=== PATIENT | male | born 1950 | race Caucasian/White ===

== ENCOUNTER 2017-06-12 10:53 | Emergency (ER) | payer OTHER ==
[~2017-06-12] VITALS: Ht 177.8 cm; Wt 63.5 kg
[~2017-06-12 10:53] MED LIST: ALBIPROI INH; ALBU.083IS IH; ALBU90OI INH; AZIT250 PO; BENADRYL25 MG PO; CEFU500 PO; CEPH500 PO; CIPRO500 MG PO; CLAR500 PO; CLIN150 PO; CRUTCH3 USE; CYCL10 PO; DIAZ5 PO; Flagyl500 MG PO; HYDACE5 PO; HYDR1TAB94 PO; IPRAIS NEB; LEVO750 PO; LOPE2C PO; METO25; METO25ER PO; MUPI2TO TOP; NAPR375 PO; NAPR500 PO; Norco 10-325 T1 EACH PO; Norco 5-325 Ta1 EACH PO; ONDA4 PO; OXYACE5T PO; PRED20 PO; PROACE100; PROM25 PO; Percocet 10-321 EACH PO; Prednisone20 MG PO; RXCLIN PO; RXOXYACE PO; Robaxin-750750 MG PO; TAMS.4ER PO; TRAM50 PO; Triamcinolone A15 G4 TP; Valium5 MG PO; Zofran Odt4 MG SL
[2017-06-12] MEDS ORDERED: HYDR-86 (11:12)
== END 2017-06-12 12:03 | disposition home or self-care (01) ==
LOC: ER 10:53
DX: M54.5 Low back pain (principal); G89.29 Other chronic pain; Z88.5 Allergy status to narcotic agent; F17.200 Nicotine dependence, unspecified, uncomplicated; Z79.891 Long term (current) use of opiate analgesic
CPT/HCPCS: 72100; 96372; 99283; J1885

== ENCOUNTER → 2018-07-25 | Outpatient (CLI) | payer OTHER ==
[~2018-07-25] MED LIST changes: +HYDR-86
== END | disposition home or self-care (01) ==
LOC: LAB SHORT 14:55 → LAB SRC 14:55
DX: M48.062 Spinal stenosis, lumbar region with neurogenic claudication (principal); Z79.899 Other long term (current) drug therapy

== ENCOUNTER 2018-12-03 10:09 | Day surgery (SDC) | payer OTHER ==
[~2018-12-03] VITALS: Ht 180.3 cm; Wt 66.6 kg
[~2018-12-03 10:09] MED LIST changes: +Hydrocodone-Ap1 EA20 PO; +PROAIR RESPICL90 MCG INH
--- NOTE | 2018-12-03 11:52 | NUR ---
12/03/18 1152 Dora Kang PT WITH BOTH INSPIRATORY AND EXPIRATORY WHEEZING. UPDRAFTED PER DR. BAUTISTA. DR. BAUTISTA MADE AWARE OF PT'S HYPERTENSION. NOTIFIED PT WE MAY NEED TO DO SCOPE WITHOUT SEDATION DUE TO RESPIRATORY STATUS. PT AGREES.
== END 2018-12-03 12:45 | disposition home or self-care (01) ==
LOC: ORSCSDS 10:09
PROVIDERS: Internal Medicine Gastroenterology
PROC: 0DJD8ZZ Inspection of Lower Intestinal Tract, Via Natural or Artificial Opening Endoscopic (ICD-10-PCS; principal; 2018-12-03 11:45)
DX: R10.9 Unspecified abdominal pain (principal); Z86.010 Personal history of colon polyps; K57.30 Diverticulosis of large intestine without perforation or abscess without bleeding; K64.8 Other hemorrhoids; K64.4 Residual hemorrhoidal skin tags; F17.210 Nicotine dependence, cigarettes, uncomplicated; J44.9 Chronic obstructive pulmonary disease, unspecified; I10 Essential (primary) hypertension; Z79.899 Other long term (current) drug therapy; Z80.0 Family history of malignant neoplasm of digestive organs
CPT/HCPCS: J2704; J7120

== ENCOUNTER 2019-03-03 13:44 | Inpatient (IN) | payer OTHER ==
[~2019-03-03] VITALS: Ht 180.3 cm; Wt 68.5 kg
[2019-03-03 14:41] LABS: BASOPHILS ABSOLUTE AUTO 0.06 K/mm3 (0.00-0.23); BASOPHILS PERCENT AUTO 0 % (0-2); EOSINOPHILS ABSOLUTE AUTO 0.05 K/mm3 (0.00-0.68); EOSINOPHILS PERCENT AUTO 0 % (0-6); Hematocrit 41.5 % (37.0-53.0); IMMATURE GRAN ABSOLUTE AUTO 0.08 K/mm3 (0.00-0.10); IMMATURE GRAN PERCENT AUTO 1 % (0-1); LYMPHOCYTES ABSOLUTE AUTO 3.07 K/mm3 (0.84-5.20); LYMPHOCYTES PERCENT AUTO 18 % (21-46); MONOCYTES ABSOLUTE AUTO 1.32 K/mm3 (0.16-1.47); MONOCYTES PERCENT AUTO 8 % (4-13); Mean Corpuscular HGB 31.5 pg (26.0-34.0); Mean Corpuscular HGB Conc 33.7 g/dL (31.5-36.5); Mean Corpuscular Volume 94 fL (80-100); Mean Platelet Volume 9.2 fL (9.1-12.4); NEUTROPHILS ABSOLUTE AUTO 12.67 K/mm3 (1.96-9.15); NEUTROPHILS PERCENT AUTO 73 % (41-73); Platelet Count 490 K/mm3 (150-400); RDW Coefficient Variation 12.8 % (11.7-14.2); RDW Standard Deviation 43.9 fL (35.1-46.3); Red Blood Cell Count 4.44 M/mm3 (4.30-5.90); White Blood Cell Count 17.25 K/mm3 (4.00-11.30)
[2019-03-03 15:04] LABS: Troponin I <0.015 ng/mL (0.000-0.040)
[2019-03-03 15:05] LABS: Alanine Aminotransfer (ALT/SGP 22 U/L (12-78); Albumin, Blood 3.5 g/dL (3.4-5.0); Alk Phos 88 U/L (50-136); Anion Gap 8 mmol/L (6-16); Aspartate Aminotrans (AST/SGOT 19 U/L (12-37); Bilirubin, Total 0.8 mg/dL (0.1-1.0); Blood Urea Nitrogen 14 mg/dL (8-24); Bun/Creatinine Ratio 18.4 (12.0-20.0); CO2, Blood 25 mmol/L (21-32); Calcium, Blood 9.1 mg/dL (8.5-10.1); Chloride, Blood 106 mmol/L (98-108); Creatinine, Blood 0.76 mg/dL (0.60-1.20); Globulin, Blood 3.4 g/dL (2.2-4.0); Glomerular Filtration Rate >60 (60-); Glucose, Blood 88 mg/dL (70-99); Potassium, Blood 3.8 mmol/L (3.5-5.5); Sodium, Blood 139 mmol/L (136-145); Total Protein, Blood 6.9 g/dL (6.4-8.2)
[2019-03-03] MEDS ORDERED: Norco 10-325 T1 EACH PO (16:07)
--- NOTE | 2019-03-03 18:32 | NUR ---
PT NEW ADMIT FROM ED. ARRIVES TO PCU 8 ON CARDIZEM GTT AT 8ML/HR. NSR-SINUS TACH IN 90S-100S. NURSE AT ROOM PERFORMING ADMISSION HISTORY AT THIS TIME.
[2019-03-03 20:50] LABS: CPK Creatine Kinase 47 U/L (39-308); Magnesium, Blood 1.5 mg/dL (1.6-2.4); Troponin I <0.015 ng/mL (0.000-0.040)
[2019-03-03 20:54] LABS: Creatine Kinase MB <1.0 ng/mL (0.0-3.6); Creatine Kinase MB Index Unable to Calculate (0.0-4.0); Phosphorus, Blood 2.5 mg/dL (2.5-4.9)
--- NOTE | 2019-03-04 01:43 | NUR ---
hr holding in 60's, lowered rate on drip back to 5
[2019-03-04 02:22] LABS: BASOPHILS ABSOLUTE AUTO 0.02 K/mm3 (0.00-0.23); BASOPHILS PERCENT AUTO 0 % (0-2); EOSINOPHILS PERCENT AUTO 0 % (0-6); Hemoglobin 12.3 g/dL (13.5-17.5); IMMATURE GRAN ABSOLUTE AUTO 0.06 K/mm3 (0.00-0.10); IMMATURE GRAN PERCENT AUTO 1 % (0-1); LYMPHOCYTES ABSOLUTE AUTO 0.68 K/mm3 (0.84-5.20); LYMPHOCYTES PERCENT AUTO 6 % (21-46); MONOCYTES ABSOLUTE AUTO 0.13 K/mm3 (0.16-1.47); MONOCYTES PERCENT AUTO 1 % (4-13); Mean Corpuscular HGB 31.9 pg (26.0-34.0); Mean Corpuscular HGB Conc 34.2 g/dL (31.5-36.5); Mean Corpuscular Volume 94 fL (80-100); Mean Platelet Volume 9.5 fL (9.1-12.4); NEUTROPHILS ABSOLUTE AUTO 11.18 K/mm3 (1.96-9.15); NEUTROPHILS PERCENT AUTO 93 % (41-73); Platelet Count 423 K/mm3 (150-400); RDW Coefficient Variation 12.9 % (11.7-14.2); RDW Standard Deviation 44.3 fL (35.1-46.3); Red Blood Cell Count 3.85 M/mm3 (4.30-5.90); White Blood Cell Count 12.07 K/mm3 (4.00-11.30)
[2019-03-04 02:42] LABS: CPK Creatine Kinase 47 U/L (39-308); Magnesium, Blood 1.5 mg/dL (1.6-2.4); Troponin I <0.015 ng/mL (0.000-0.040)
[2019-03-04 02:43] LABS: Anion Gap 9 mmol/L (6-16); Blood Urea Nitrogen 13 mg/dL (8-24); Bun/Creatinine Ratio 15.9 (12.0-20.0); CHOL/HDL RATIO 1.6; CO2, Blood 22 mmol/L (21-32); Calcium, Blood 8.5 mg/dL (8.5-10.1); Chloride, Blood 106 mmol/L (98-108); Cholesterol 106 mg/dL (50-200); Creatinine, Blood 0.82 mg/dL (0.60-1.20); Glomerular Filtration Rate >60 (60-); Glucose, Blood 213 mg/dL (70-99); HDL Cholesterol 67 mg/dL (>39); LDL/HDL RATIO 0.4; Low Density Lipoprotein Chol 24 mg/dL (0-110); Phosphorus, Blood 1.6 mg/dL (2.5-4.9); Potassium, Blood 4.3 mmol/L (3.5-5.5); Sodium, Blood 137 mmol/L (136-145); Triglycerides 77 mg/dL (30-160); Very Low Density Lipoprot Chol 15 mg/dL (6-32)
[2019-03-04 02:45] LABS: Creatine Kinase MB <1.0 ng/mL (0.0-3.6); Creatine Kinase MB Index Unable to Calculate (0.0-4.0)
--- NOTE | 2019-03-04 03:59 | NUR ---
gave max dose of pain medication due to lack of response in previous dosing
--- NOTE | 2019-03-04 06:07 | NUR ---
HR STEADY SO STOPPING DILTIAZIM, WILL CONTINUE TO MONITOR CLOSELY
--- NOTE | 2019-03-04 07:23 | NUR ---
call light in reach, pain still not where he would like it, fluids runing with no sx of infection, bsr shared with day staff and pt
[2019-03-04] MEDS ORDERED: ALBU2.5V5 INH (12:50)
[2019-03-04] MEDS ORDERED: AZIT500 PO (12:51)
[2019-03-04] MEDS ORDERED: DILT60 PO (12:53)
[2019-03-04] MEDS ORDERED: GUAI600T33 PO (12:54)
[2019-03-04] MEDS ORDERED: ALBU3IS INH (12:57)
[2019-03-04] MEDS ORDERED: PRED20 PO (12:58)
[2019-03-04] MEDS ORDERED: METO25 PO (12:59)
[2019-03-04] MEDS ORDERED: NICO21TP TOP (13:00)
[2019-03-04] MEDS ORDERED: XARELTO20 MG PO (13:02)
--- NOTE | 2019-03-04 13:43 | NUR ---
PT PROVIDED DISCHARGE PAPERWORK AND PRESCRIPTIONS. PROVIDED DISCHARGE TEACHING TO PT ABOUT NEW MEDICATIONS AND PROVIDED PRINTED INFORMATION. DISCHARGE INSTRUCTIONS GIVEN PROVIDED TO FAMILY MEMBER ALSO. IV'S REMOVED AND INTACT. ALL BELONGINGS GATHERED AND SENT WITH PT. PT ESCORTED OUT BY JENN WISE VIA WHEELCHAIR.
== END 2019-03-04 13:42 | disposition home or self-care (01) | DRG 189 ==
LOC: ER 13:44 → PCU 16:42
PROVIDERS: Physician Assistant; ADMIT Family Medicine
DX: J96.20 Acute and chronic respiratory failure, unspecified whether with hypoxia or hypercapnia (principal); I48.92 Unspecified atrial flutter; J44.1 Chronic obstructive pulmonary disease with (acute) exacerbation; G89.29 Other chronic pain; M54.9 Dorsalgia, unspecified; F17.210 Nicotine dependence, cigarettes, uncomplicated
CPT/HCPCS: 36415; 71045; 71046; 80048; 80053; 80061; 82550; 82553; 83735; 84100; 84484; 85025; 85379; 93005; 93010; 93306; 94640; 94760; 94761; 96365; 96366; 96375; 96376; 99285-25; J0153; J0456; J2270; J2930; J7030; J7050

== ENCOUNTER 2020-10-11 09:19 | Inpatient (IN) | payer OTHER ==
[~2020-10-11] VITALS: Ht 177.8 cm; Wt 72.3 kg
[~2020-10-11 09:19] MED LIST changes: +ALBU2.5V5 INH; +ALBU3IS INH; +AZIT500 PO; +DILT60 PO; +GUAI600T33 PO; +METO25 PO; +NICO21TP TOP; +XARELTO20 MG PO
[2020-10-11 10:01] LABS: BASOPHILS ABSOLUTE AUTO 0.04 K/mm3 (0.00-0.23); BASOPHILS PERCENT AUTO 0 % (0-2); EOSINOPHILS ABSOLUTE AUTO 0.04 K/mm3 (0.00-0.68); EOSINOPHILS PERCENT AUTO 0 % (0-6); Hematocrit 47.2 % (37.0-53.0); Hemoglobin 15.8 g/dL (13.5-17.5); IMMATURE GRAN ABSOLUTE AUTO 0.15 K/mm3 (0.00-0.10); IMMATURE GRAN PERCENT AUTO 1 % (0-1); LYMPHOCYTES ABSOLUTE AUTO 2.51 K/mm3 (0.84-5.20); LYMPHOCYTES PERCENT AUTO 15 % (21-46); MONOCYTES ABSOLUTE AUTO 1.84 K/mm3 (0.16-1.47); MONOCYTES PERCENT AUTO 11 % (4-13); Mean Corpuscular HGB 31.2 pg (26.0-34.0); Mean Corpuscular HGB Conc 33.5 g/dL (31.5-36.5); Mean Corpuscular Volume 93 fL (80-100); Mean Platelet Volume 9.3 fL (9.1-12.4); NEUTROPHILS ABSOLUTE AUTO 12.25 K/mm3 (1.96-9.15); NEUTROPHILS PERCENT AUTO 73 % (41-73); Platelet Count 480 K/mm3 (150-400); RDW Coefficient Variation 13.6 % (11.7-14.2); RDW Standard Deviation 46.8 fL (35.1-46.3); Red Blood Cell Count 5.06 M/mm3 (4.30-5.90); White Blood Cell Count 16.83 K/mm3 (4.00-11.30)
[2020-10-11 10:06] LABS: Acetaminophen, Random <2.0 ug/mL (10.0-30.0); Alanine Aminotransfer (ALT/SGP 23 U/L (12-78); Albumin, Blood 3.5 g/dL (3.4-5.0); Albumin/Globulin Ratio 0.7 (0.8-1.8); Alk Phos 81 U/L (50-136); Anion Gap 9 mmol/L (6-16); Aspartate Aminotrans (AST/SGOT 44 U/L (12-37); Bilirubin, Total 0.7 mg/dL (0.1-1.0); Blood Urea Nitrogen 48 mg/dL (8-24); Bun/Creatinine Ratio 18.8 (12.0-20.0); CO2, Blood 18 mmol/L (21-32); Calcium, Blood 9.2 mg/dL (8.5-10.1); Chloride, Blood 104 mmol/L (98-108); Creatinine, Blood 2.55 mg/dL (0.60-1.20); Ethanol (Alcohol), Blood, Med <3 mg/dL; Globulin, Blood 4.7 g/dL (2.2-4.0); Glomerular Filtration Rate 27 (60-); Glucose, Blood 96 mg/dL (70-99); Potassium, Blood 5.2 mmol/L (3.5-5.5); Salicylate <1.7 mg/dL (2.8-20.0); Sodium, Blood 131 mmol/L (136-145); Total Protein, Blood 8.2 g/dL (6.4-8.2)
[2020-10-11 13:25] LABS: Source, Urine Clean Catch
[2020-10-11 13:37] LABS: Bilirubin, Urine Neg (Neg); Blood, Urine 1+ (Neg); Glucose Qualitative, Urine Neg (Neg); Ketones, Urine Neg (Neg); Leukocyte Esterase, Urine Neg (Neg); Nitrite, Urine Neg (Neg); Protein, Urine 2+ (Neg); Specific Gravity, Urine 1.025 (1.003-1.022); Urobilinogen, Urine NORM (Normal)
--- NOTE | 2020-10-11 13:46 | NUR ---
Spoke with Pt's primary RN and discussed case. Pt resting in bed and reports 9/10 pain in his back and neck. He reports current regimen is starting to manage pain. Engaged in therapeutic listening as Pt discusses his ability to do things have become more difficult. Continued therapeutic listening and offered suggestions such as physcial therapy. Pt tends to respond with reasons for not being able to consider therapy. Listened as Pt reports being depressed since his passed. He states the hospital placed her on comfort care and kept her comfortable until she . Pt is requesting this as well. Continued therapeutic listening and offered suggestions. Ended visit to allow Pt to rest. Pt may benefit from antidepressant and counseling if appropriate. Spoke with Dr Norman and discussed case. Palliative Care will remain available.
[2020-10-11 13:54] LABS: Appearance, Urine Clear (Clear); Color, Urine Yellow (P-Yellow)
[2020-10-11 14:28] LABS: Squamous Epithelial Cells Few /hpf (Few)
[2020-10-11 14:29] LABS: Bacteria Mod /hpf; Mucus Light (0-Heavy); U Amphetamine Screen Not Detected; U Barbituate Screen Not Detected; U Benzodiazapine Screen Not Detected; U Buprenorphine Screen Not Detected; U Cannabinoids Screen Not Detected; U Cocaine Screen Not Detected; U Methadone Screen Not Detected; U Methamphetamine Screen Not Detected; U Opiates Screen DETECTED; U Oxycodone Screen Not Detected; U Phencyclidine Screen Not Detected; U Propoxyphene Screen Not Detected
--- NOTE | 2020-10-11 18:24 | NUR ---
DR LARIOS AWARE OF RECENT PRESSURES. ORDERS FOR ONE TIME DOSE ORAL MIDODRINE 5MG. WILL CONTINUE TO MONITOR.
--- NOTE | 2020-10-11 18:26 | NUR ---
SHIFT SUMMARY PT REMAINS ALERT AND ORIENTED. ANSWERS QUESTIONS APPROPRIATELY. PT SBP <90, SPOKE WITH DR LARIOS AND ONE TIME DOSE OF ORAL MIDODRINE RECEIVED. PT HAS 20G TO RIGHT HAND, SITE WNL, DRESSING C/D/I. 20G TO LEFT HAND WITH NS INFUSING AT 125ML/HR, SITE WNL, DRESSING C/D/I. PT TOLERATING PO, USING URINAL. CALL LIGHT IN REACH. CONTINUOUS VIDEO MONITORING IN PROCESS. PT USES CALL LIGHT. SEEMS MORE PLEASANT THIS EVENING. CONSULT FOR DR RIGGINS FOR TOMORROW. BERNY WITH PALLIATIVE CARE SPOKE WITH PT AND FAMILY TODAY. PT WOULD BENEFIT FROM PT/OT CONSULTS. WILL CONTINUE TO MONIOR AND REPORT TO ONCOMING RN.
--- NOTE | 2020-10-11 19:24 | NUR ---
SHIFT ASSESSMENT PT RESTING IN BED WATCHING TV. A0, FOLLOWS COMMANDS. REPORTS GENERALIZED PAIN 9/10. NS INFUSING AT 125 ML/HR. SBP 80'S, HR 68 SR ON MONITOR, SPO2 94% ON RA. PT STATES HE WEARS O2 AT NIGHT WHILE SLEEPING. URINAL AT BEDSIDE. CALL LIGHT WITHIN REACH. MOVES EXTREMITIES X4. PT ON CONTINUOUS CAMERA MONITORING.
[2020-10-12 03:45] LABS: BASOPHILS ABSOLUTE AUTO 0.01 K/mm3 (0.00-0.23); BASOPHILS PERCENT AUTO 0 % (0-2); EOSINOPHILS PERCENT AUTO 0 % (0-6); Hemoglobin 13.5 g/dL (13.5-17.5); IMMATURE GRAN ABSOLUTE AUTO 0.06 K/mm3 (0.00-0.10); IMMATURE GRAN PERCENT AUTO 1 % (0-1); LYMPHOCYTES ABSOLUTE AUTO 0.69 K/mm3 (0.84-5.20); LYMPHOCYTES PERCENT AUTO 7 % (21-46); MONOCYTES ABSOLUTE AUTO 0.14 K/mm3 (0.16-1.47); MONOCYTES PERCENT AUTO 1 % (4-13); Mean Corpuscular HGB 31.4 pg (26.0-34.0); Mean Corpuscular HGB Conc 32.9 g/dL (31.5-36.5); Mean Corpuscular Volume 95 fL (80-100); Mean Platelet Volume 9.3 fL (9.1-12.4); NEUTROPHILS ABSOLUTE AUTO 9.65 K/mm3 (1.96-9.15); NEUTROPHILS PERCENT AUTO 92 % (41-73); Platelet Count 384 K/mm3 (150-400); RDW Coefficient Variation 13.7 % (11.7-14.2); RDW Standard Deviation 47.8 fL (35.1-46.3); White Blood Cell Count 10.55 K/mm3 (4.00-11.30)
[2020-10-12 04:16] LABS: Albumin, Blood 2.8 g/dL (3.4-5.0); Albumin/Globulin Ratio 0.8 (0.8-1.8); Bilirubin, Total 0.2 mg/dL (0.1-1.0); Bun/Creatinine Ratio 26.6 (12.0-20.0); Calcium, Blood 8.3 mg/dL (8.5-10.1); Creatinine, Blood 1.43 mg/dL (0.60-1.20); Globulin, Blood 3.6 g/dL (2.2-4.0); Magnesium, Blood 2.1 mg/dL (1.6-2.4); Potassium, Blood 4.1 mmol/L (3.5-5.5); Thyroid Stimulating Hormone 0.36 uIU/mL (0.360-4.800); Total Protein, Blood 6.4 g/dL (6.4-8.2)
--- NOTE | 2020-10-12 05:45 | NUR ---
SHIFT SUMMARY PT ALERT AND ORIENTED T/O SHIFT, FOLLOWS COMMANDS. VSS. 2L NC APPLIED WHILE SLEEPING TO MAINTAIN SPO2 >90%. PT COMPLAINED OF 10/10 GENERALIZED PAIN, PRN MORPHINE GIVEN PER EMAR. LUNGS WITH EXPIRATORY WHEEZES. PT VERY PLEASANT AND THANKFUL FOR CARE T/O SHIFT. WILL CONTINUE TO MONITOR UNTIL REPORT GIVEN TO ONCOMING RN.
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
--- NOTE | 2020-10-12 10:25 | NUR ---
Yohana Manjarrez is here at the bedside now reviewing the pt safety plan. The poison control called for an update and there is also a rn case manager hospice from [facility] here doing and assessment for outpatient support. Pt continues to rest in bed.
--- NOTE | 2020-10-12 11:57 | NUR ---
Olena from Palliative care is here and has spoken with the pt. The Pt is now medical status and is being transferred to room 351. Report has been called and the pt is aware, family notified. All personal belongings packed and sent with the pt.
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
--- NOTE | 2020-10-12 12:24 | NUR ---
PT ARRIVED TO THE UNIT VIA WHEEL CHAIR AT 1220. ROOM CLEARED. ORIENTED TO THE ROOM. CALL LIGHT IS WITIN REACH.
--- NOTE | 2020-10-12 17:44 | NUR ---
Spiritual care note: Mr. Leal is non-religous, but appeared to benefit from gentle rehabilitation services counselor and theraputic listening. His suddenly 3 years ago, and he admits that since her passing he has not been interested in his life. He and his raised their grand-children. He lives with his grandson and his . They recently had their first child. Mr. Leal feels he has become a burden to his family. Also, his chronic pain has surpassed what he can bear. He beleives in God, and a reunion with his when he dies. Later, I met with his grand-daughter in-law outside of room. She is tearful and admits that caring for Mr. Leal has become too much of a burden for her young family. They all live in a 2 bedroom apt on the 3rd floor. Mr. Leal cannot make it down the stairs any longer. She admits to me they can no longer care for him. I hugged her while she wept and provided rehabilitation services counselor. I will remain available to this pt and family.
--- NOTE | 2020-10-12 18:08 | NUR ---
SHIFT SUMMARY- PT WAS TRANSFERED FROM ICU THIS MORNING. HE IS A/O, PLESANT AND COOPERATVIE. HE IS ON CAMERA. HIS GRANDDAUGHTER WAS HERE THIS AFTERNOON. IS EATING AND DRINKING WELL. HE IS RECIEVING PAIN MEDICATIONS NEEDED. HIS BED IS IN THE LOW POSITION AND CALL LIGHT IS WITHIN REACH.
--- NOTE | 2020-10-13 05:07 | NUR ---
SHIFT SUMMARY AOX4. DIFFICULTY SLEEPING T/O NIGHT. VSS. TELE NSR @83. REPORTS 8-01/24 PAIN IN BACK, MEDICATED 2X c ROXICODONE, STATED VERY LITTLE TO NO RELIEF. OFFERED TYLENOL & PT REFUSED. SPO2 @98% ON 2L O2 ,STATES NORMALLY ONLY WEARS O2 @HS, INFORMED PT MAY TAKE OFF WHILE AWAKE. REPORTED SOB. LUNGS HAVE EXPIRATORY WHEEZES T/O. RECIEVED IV SOLUMEDROL & BREATHING TX. DENIES ANY SI THOUGHTS OR PLANS, ON LOW SI PERCAUTIONS. AWAITING SAFE DC PLAN. CALL LIGHT IN REACH & PT ABLE TO MAKE NEEDS KNOWN. WCTM.
[2020-10-13 05:23] LABS: Hematocrit 38.6 % (37.0-53.0); Hemoglobin 12.7 g/dL (13.5-17.5); Mean Corpuscular HGB Conc 32.9 g/dL (31.5-36.5); Mean Corpuscular Volume 94 fL (80-100); Platelet Count 451 K/mm3 (150-400); RDW Coefficient Variation 13.6 % (11.7-14.2); RDW Standard Deviation 47.6 fL (35.1-46.3); White Blood Cell Count 18.83 K/mm3 (4.00-11.30)
[2020-10-13 05:43] LABS: Anion Gap 6 mmol/L (6-16); Blood Urea Nitrogen 23 mg/dL (8-24); Bun/Creatinine Ratio 23.3 (12.0-20.0); CO2, Blood 24 mmol/L (21-32); Calcium, Blood 8.6 mg/dL (8.5-10.1); Chloride, Blood 111 mmol/L (98-108); Creatinine, Blood 0.99 mg/dL (0.60-1.20); Glomerular Filtration Rate >60 (60-); Glucose, Blood 123 mg/dL (70-99); Potassium, Blood 3.7 mmol/L (3.5-5.5); Sodium, Blood 141 mmol/L (136-145)
--- NOTE | 2020-10-14 04:27 | NUR ---
SHIFT SUMMARY AOX4. VSS. REPORTS 7-01/24 PAIN IN LOW BACK, L. HIP, MEDICATED 2X c 10MG ROXICODONE, STATES VERY LITTLE RELIEF. DENIES ANY SI THOUGHTS OR PLANS. REPORTS FEELING "QUEASY", GAVE SALTINES & ZOFRAN 1X- NO EMESIS OR FURTHER NAUSEA NOTED. IND IN RM. AWAITING SAFE DC PLAN. CALL LIGHT IN REACH. WCTM.
[2020-10-14 09:19] LABS: Hematocrit 38.6 % (37.0-53.0); Hemoglobin 12.8 g/dL (13.5-17.5); Mean Corpuscular HGB Conc 33.2 g/dL (31.5-36.5); Mean Corpuscular Volume 94 fL (80-100); Mean Platelet Volume 9.4 fL (9.1-12.4); Platelet Count 460 K/mm3 (150-400); RDW Coefficient Variation 13.8 % (11.7-14.2); RDW Standard Deviation 47.4 fL (35.1-46.3); Red Blood Cell Count 4.13 M/mm3 (4.30-5.90); White Blood Cell Count 18.11 K/mm3 (4.00-11.30)
[2020-10-14 09:50] LABS: Alanine Aminotransfer (ALT/SGP 44 U/L (12-78); Albumin/Globulin Ratio 0.9 (0.8-1.8); Alk Phos 85 U/L (50-136); Anion Gap 5 mmol/L (6-16); Aspartate Aminotrans (AST/SGOT 17 U/L (12-37); Bilirubin, Total 0.2 mg/dL (0.1-1.0); Blood Urea Nitrogen 13 mg/dL (8-24); Bun/Creatinine Ratio 15.5 (12.0-20.0); CO2, Blood 27 mmol/L (21-32); Chloride, Blood 108 mmol/L (98-108); Creatinine, Blood 0.84 mg/dL (0.60-1.20); Globulin, Blood 3.3 g/dL (2.2-4.0); Glomerular Filtration Rate >60 (60-); Glucose, Blood 135 mg/dL (70-99); Potassium, Blood 3.7 mmol/L (3.5-5.5); Sodium, Blood 140 mmol/L (136-145); Total Protein, Blood 6.3 g/dL (6.4-8.2)
--- NOTE | 2020-10-14 10:58 | NUR ---
THE PATIENTS [id number] CALLED ANDShellie REPORTED THAT THE PATIENTS EXPRESSED THOUGHTS OF SUICIDE TO HIS GRANDCHILDREN ON 10/13/20 AROUND 18:00 OVER THE PHONE. THIS RN ASKED THE PATIENT IF HE IS HAVING ANY SUICIDAL THOUGHTS TODAY OR LAST NIGHT, HE DENIED ANY SI. PATIENT STATES HE WAS TALKING TO HIS GRANDCHILDREN ABOUT VISITING THE PLACE WHERE HE SPREAD HIS WIFES ASHES.
--- NOTE | 2020-10-14 18:31 | NUR ---
PATIENT IS ALERT AND ORIENTED AND COOPERATIVE WITH CARE. NO SI PRECAUTINOS. THE HOLD WAS DC'D. THE PATIENT IS INDENPENDENT IN HIS ROOM. PATIENT ASKS FOR BREATHING TREATMENTS WHEN NEEDED. HE WORKED WITH PT/OT TODAY. PAIN MANAGED PER EMAR. WILL CONTINUE TO MONITOR
[2020-10-15 05:29] LABS: Hematocrit 35.8 % (37.0-53.0); Mean Corpuscular HGB 31.4 pg (26.0-34.0); Mean Corpuscular HGB Conc 33.5 g/dL (31.5-36.5); Mean Corpuscular Volume 94 fL (80-100); Platelet Count 452 K/mm3 (150-400); RDW Coefficient Variation 13.7 % (11.7-14.2); RDW Standard Deviation 47.2 fL (35.1-46.3); Red Blood Cell Count 3.82 M/mm3 (4.30-5.90); White Blood Cell Count 17.49 K/mm3 (4.00-11.30)
[2020-10-15 05:53] LABS: Alanine Aminotransfer (ALT/SGP 62 U/L (12-78); Albumin, Blood 2.8 g/dL (3.4-5.0); Alk Phos 77 U/L (50-136); Anion Gap 6 mmol/L (6-16); Aspartate Aminotrans (AST/SGOT 22 U/L (12-37); Bilirubin, Total 0.4 mg/dL (0.1-1.0); Blood Urea Nitrogen 16 mg/dL (8-24); Bun/Creatinine Ratio 20.8 (12.0-20.0); CO2, Blood 29 mmol/L (21-32); Calcium, Blood 8.9 mg/dL (8.5-10.1); Chloride, Blood 105 mmol/L (98-108); Creatinine, Blood 0.77 mg/dL (0.60-1.20); Globulin, Blood 2.9 g/dL (2.2-4.0); Glomerular Filtration Rate >60 (60-); Glucose, Blood 110 mg/dL (70-99); Potassium, Blood 4.1 mmol/L (3.5-5.5); Sodium, Blood 140 mmol/L (136-145); Total Protein, Blood 5.7 g/dL (6.4-8.2)
--- NOTE | 2020-10-15 06:21 | NUR ---
SHIFT SUMMARY A/O, ABLE TO MAKE NEEDS KNOWN. COOPERATIVE WITH CARE. CALLS AND ANSWERS QUESTIONS APPROPRIATELY. C/O PAIN/DISCOMFORT TO LOWER BACK; MEDICATED PER EMAR. APPEARED TO REST OFF AND ON. HAS BEEN INDEPEDENT IN THE ROOM; GAIT STEADY. NO ACUTE CHANGES NOTED OVERNIGHT. BED REMAINS IN LOWEST POSITION. CALL LIGHT AND BELONGINGS WITHIN REACH. CONTINUE WITH CURRENT PLAN OF CARE. REPORT TO ONCOMING RN.
[2020-10-15] MEDS ORDERED: METO25 PO (11:47)
[2020-10-15] MEDS ORDERED: FENTANYL1 EAC7 TOP (11:48)
[2020-10-15] MEDS ORDERED: OXYC10TA19 PO (11:57)
--- NOTE | 2020-10-15 17:02 | NUR ---
PT DISCHARGE WITH GRANDDAUGHTER TO TRANSPORT HOME. ALL MEDICATIONS REVIEWED. CASEMANAGER TO HAVE HOME HEALTH FOLLOW UP WITH PT AT HOME. PT TREATED FOR PAIN TODAY PER EMAR. PT AOX4 AND COOPERATIVE OF ALL CARE. PT MOVING INDEPENDENTLY IN ROOM WELL TODAY. NO DISTRESS NOTED. ALL PERSONAL BELONGINGS COLLECTED AND PT ESCORTED OUT BY THIS DOCUMENTATION DESIGNER TO N ENTRANCE VIA WHEELCHAIR.
== END 2020-10-15 16:47 | disposition home health service (06) | DRG 918 ==
LOC: ER 09:19 → ICUW 09:20 → MEDS 11:53 → ICUW 11:54 → MEDS 10-12 12:04
PROVIDERS: Emergency Medicine; ADMIT Internal Medicine
DX: T44.7X2A Poisoning by beta-adrenoreceptor antagonists, intentional self-harm, initial encounter (principal); J44.1 Chronic obstructive pulmonary disease with (acute) exacerbation; I48.92 Unspecified atrial flutter; N17.9 Acute kidney failure, unspecified; D72.829 Elevated white blood cell count, unspecified; Z66 Do not resuscitate; E86.0 Dehydration; I48.91 Unspecified atrial fibrillation; M54.5 Low back pain; N18.30 Chronic kidney disease, stage 3 unspecified; F17.210 Nicotine dependence, cigarettes, uncomplicated; G89.29 Other chronic pain; Z90.49 Acquired absence of other specified parts of digestive tract; Z98.890 Other specified postprocedural states; Z93.3 Colostomy status; Z79.52 Long term (current) use of systemic steroids; Z79.01 Long term (current) use of anticoagulants; Z79.899 Other long term (current) drug therapy
CPT/HCPCS: 36415; 71046; 72131; 73502; 80048; 80053; 81001; 83735; 84443; 85025; 85027; 87086; 93005; 93010; 94640; 94664; 94760; 96365; 96375; 97116; 97162; 97165; 97530; 97535; 99285-25; A9270; C9113; G0480; J0610; J1650; J2270; J2405; J2930; J3010; J7030; J7120

== ENCOUNTER 2021-04-27 13:50 | Inpatient (IN) | payer OTHER ==
[~2021-04-27] VITALS: Ht 177.8 cm; Wt 82.0 kg
[~2021-04-27 13:50] MED LIST changes: +FENTANYL1 EAC7 TOP; +OXYC10TA19 PO
[2021-04-27 14:17] LABS: BASOPHILS ABSOLUTE AUTO 0.05 K/mm3 (0.00-0.23); BASOPHILS PERCENT AUTO 0 % (0-2); EOSINOPHILS ABSOLUTE AUTO 0.12 K/mm3 (0.00-0.68); EOSINOPHILS PERCENT AUTO 1 % (0-6); Hematocrit 41.3 % (37.0-53.0); Hemoglobin 13.1 g/dL (13.5-17.5); IMMATURE GRAN ABSOLUTE AUTO 0.05 K/mm3 (0.00-0.10); IMMATURE GRAN PERCENT AUTO 0 % (0-1); LYMPHOCYTES ABSOLUTE AUTO 1.97 K/mm3 (0.84-5.20); LYMPHOCYTES PERCENT AUTO 16 % (21-46); MONOCYTES ABSOLUTE AUTO 0.66 K/mm3 (0.16-1.47); MONOCYTES PERCENT AUTO 5 % (4-13); Mean Corpuscular HGB 29.8 pg (26.0-34.0); Mean Corpuscular HGB Conc 31.7 g/dL (31.5-36.5); Mean Corpuscular Volume 94 fL (80-100); Mean Platelet Volume 8.8 fL (9.1-12.4); NEUTROPHILS ABSOLUTE AUTO 9.77 K/mm3 (1.96-9.15); NEUTROPHILS PERCENT AUTO 77 % (41-73); Platelet Count 353 K/mm3 (150-400); RDW Coefficient Variation 13.3 % (11.7-14.2); RDW Standard Deviation 46.5 fL (35.1-46.3); Red Blood Cell Count 4.39 M/mm3 (4.30-5.90); White Blood Cell Count 12.62 K/mm3 (4.00-11.30)
[2021-04-27 14:36] LABS: Alanine Aminotransfer (ALT/SGP 21 U/L (12-78); Albumin/Globulin Ratio 0.8 (0.8-1.8); Alk Phos 80 U/L (50-136); Anion Gap 5 mmol/L (6-16); Aspartate Aminotrans (AST/SGOT 20 U/L (12-37); Bilirubin, Total 0.2 mg/dL (0.1-1.0); Blood Urea Nitrogen 10 mg/dL (8-24); Bun/Creatinine Ratio 11.9 (12.0-20.0); CO2, Blood 30 mmol/L (21-32); Calcium, Blood 9.1 mg/dL (8.5-10.1); Chloride, Blood 106 mmol/L (98-108); Creatinine, Blood 0.84 mg/dL (0.60-1.20); Globulin, Blood 3.6 g/dL (2.2-4.0); Glomerular Filtration Rate >60 (60-); Glucose, Blood 119 mg/dL (70-99); Potassium, Blood 4.4 mmol/L (3.5-5.5); Sodium, Blood 141 mmol/L (136-145); Total Protein, Blood 6.6 g/dL (6.4-8.2); Troponin I <0.015 ng/mL (0.000-0.040)
[2021-04-27] MEDS ORDERED: METO100ER PO (14:40)
[2021-04-27] MEDS ORDERED: DILTIAZEM 24HR180 M3 PO (14:41)
[2021-04-27 15:27] LABS: Anti-Xa UFH, PHA Monitoring <0.10 IU/mL; International Normalized Ratio 0.93; Prothrombin Time Results 9.8 Sec (9.7-11.5)
--- NOTE | 2021-04-27 18:50 | NUR ---
Arrival: Patient arrived from the ER to PCU 06 via gurney and was able to transfer with standby assist to the bed. Patient is alert and oriented. He reports 9/10 lower back pain, 10 mg Oxycodone given. HR irreg a-flutter in the 150s, Cardizem gtt infusing at 10mg/hr-bp 120/84. Hep gtt infusing at 15u/kg/hr. Other VSS. Patient oriented to room and call light. Egg crate placed on mattress for comfort. Patient denies other needs at this time. Call light in reach, will continue to monitor.
[2021-04-27] MEDS ORDERED: FURO20 PO (19:19)
[2021-04-27 20:10] LABS: Influenza A, PCR NEGATIVE (NEGATIVE); Influenza B, PCR NEGATIVE (NEGATIVE); Resp Syncytial Virus, PCR NEGATIVE (NEGATIVE); SARS-Cov-2 (COVID-19) PCR, MMC NEGATIVE (NEGATIVE)
--- NOTE | 2021-04-27 22:16 | NUR ---
CARE ASSUMPTION PT IS SITTING IN BED. PT IS AXO X4. PT REPORTING MILD CP THAT IS UNCHANGED SINCE THE LAST WEEK. TELE SHOWING AFLUTTER 120-140, CARDIZEM GTT UP AT 15. PT PLACED ON 2L NC WHICH IS HIS NIGHTTIME BASELINE HOWEVER HE DOES MAINTAIN O2 SATS >90% ON RM AIR. HEPARIN GTT RUNNING AND THE PT EDUCATED ON THE IMPORTANCE OF CALLING FOR HELP IF HE NEEDS TO GET UP TO PREVENT FALLING WHILE ON A BLOOD THINNER. PT DENYING ANY FURTHER NEEDS AT THIS TIME.
--- NOTE | 2021-04-27 22:35 | NUR ---
UPDATE THIS RN RECIEVED A CALL FROM THE PROVIDER REQUESTING THAT THE CARDIZEM CONTINUE TO BE TITRATED UP TO GET TH HR <110. ORDERS ADJUSTED PER PROVIDER.
--- NOTE | 2021-04-28 05:48 | NUR ---
BOAT LOADER HELPER SUMMARY PT IS AXO X4 AND USES HIS CALL LIGHT TO MAKE HIS NEEDS KNOWN. AT START OF THE SHIFT TELE SHOWED PERSISTANT AFIB IN THE 140-150'S SO CARDIZEM TURNED UP TO 15 AND SLOWLY HIS RATE LOWERED AND REMAINED 90-115 FOR MOST OF THE SHIFT. BP REMAINED WNL AND STABLE THIS SHIFT. PT DID GET UP TO THE BSC THIS AM AND HIS HR WAS IN THE 140'S BUT CAME DOWN ONCE HE WAS AT REST. O2 SATS >90% ON 2L NC. PT SLEPT ON AND OFF THIS SHIFT. PT NPO SINCE 2330 FOR CARDIOVERSION THIS AM. SUCTION AT BEDSIDE WILL REPORT TO ONCOMING JENN.
[2021-04-28 06:06] LABS: Hematocrit 39.9 % (37.0-53.0); Hemoglobin 12.5 g/dL (13.5-17.5); Mean Corpuscular HGB 30.2 pg (26.0-34.0); Mean Corpuscular HGB Conc 31.3 g/dL (31.5-36.5); Mean Corpuscular Volume 96 fL (80-100); Mean Platelet Volume 9.3 fL (9.1-12.4); Platelet Count 356 K/mm3 (150-400); RDW Coefficient Variation 13.6 % (11.7-14.2); RDW Standard Deviation 48.2 fL (35.1-46.3); Red Blood Cell Count 4.14 M/mm3 (4.30-5.90); White Blood Cell Count 16.88 K/mm3 (4.00-11.30)
[2021-04-28 06:56] LABS: Anion Gap 8 mmol/L (6-16); Blood Urea Nitrogen 16 mg/dL (8-24); Bun/Creatinine Ratio 18.9 (12.0-20.0); CO2, Blood 24 mmol/L (21-32); Chloride, Blood 107 mmol/L (98-108); Creatinine, Blood 0.85 mg/dL (0.60-1.20); Glomerular Filtration Rate >60 (60-); Glucose, Blood 106 mg/dL (70-99); Sodium, Blood 139 mmol/L (136-145)
--- NOTE | 2021-04-28 07:30 | NUR ---
INITIAL ASSESSMENT: Patient is sitting up in bed watching TV. He is alert and oriented. He states he is anxious about the upcoming LUCIO and Cardioversion today. He reports 9/10 lower back pain, currently his oxycodone is ordered every 8 hours-pt states he takes it every 6 hours at home-will call MD to see if I can get frequency to pts home dose. HR irreg, A-flutter in the 115-120 cardizem gtt infusing at 10mg/hr. Hep gtt infusing at 12u/kg/hr. BT+. Pt has midline abd scar, he also has a small hernia mid abdomen. PPP. He has 2+ pitting edema to bilat feet. VSS. Patient denies other needs at this time. Call light in reach, will continue to monitor.
--- NOTE | 2021-04-28 12:30 | NUR ---
Update: central sterile tech called to let me know the patient converted to SR. Rhythm confirmed with EKG. Dr. Mar notified. Patient is on cardizem at 15mg/hr currently. VSS. Patient denies needs at this time. Call light in reach, will continue to monitor.
--- NOTE | 2021-04-28 15:30 | NUR ---
Update: Patient has remained in SR in the 90s, he is still on cardizem gtt at 10mg/hr. PO cardizem given, will DC drip in 2 hours per MD orders. Patient medicated with oxycodone for chronic back pain. Patient denies other needs at this time. Call light in reach, will continue to monitor.
--- NOTE | 2021-04-28 18:26 | NUR ---
Summary: Patient is admitted with A-Flutter RVR. He started the shift on Cardizem gtt at 10 mg/hr, t/o the morning it was titrated up to 20 mg/hr. At around 12 the patient converted to SR in the 90s. He recieved Cardizem PO and the drip was turned off 2 hours after PO dose. Hep gtt turned off after Xarelto given. LUCIO and Cardioversion cancelled. VSS t/o the shift. Patient has been on RA to 2L during the day, oxygen saturations ranging from 90-98%. He had a BM this am. Patient has chronic back pain. He has a Fentanyl patch and was given 2 doses of Oxycodone 10 mg for breakthrough pain. No other acute changes this shift. No other acute changes this shift, will report to oncoming RN.
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
[2021-04-29 04:20] LABS: BASOPHILS ABSOLUTE AUTO 0.04 K/mm3 (0.00-0.23); BASOPHILS PERCENT AUTO 0 % (0-2); EOSINOPHILS ABSOLUTE AUTO 0.01 K/mm3 (0.00-0.68); EOSINOPHILS PERCENT AUTO 0 % (0-6); Hematocrit 38.1 % (37.0-53.0); IMMATURE GRAN ABSOLUTE AUTO 0.08 K/mm3 (0.00-0.10); IMMATURE GRAN PERCENT AUTO 1 % (0-1); LYMPHOCYTES PERCENT AUTO 21 % (21-46); MONOCYTES ABSOLUTE AUTO 0.96 K/mm3 (0.16-1.47); MONOCYTES PERCENT AUTO 6 % (4-13); Mean Corpuscular HGB 30.1 pg (26.0-34.0); Mean Corpuscular HGB Conc 31.5 g/dL (31.5-36.5); Mean Corpuscular Volume 96 fL (80-100); NEUTROPHILS PERCENT AUTO 72 % (41-73); Platelet Count 319 K/mm3 (150-400); RDW Coefficient Variation 13.8 % (11.7-14.2); RDW Standard Deviation 49.2 fL (35.1-46.3); Red Blood Cell Count 3.99 M/mm3 (4.30-5.90); White Blood Cell Count 15.29 K/mm3 (4.00-11.30)
[2021-04-29 04:37] LABS: Anion Gap 4 mmol/L (6-16); Blood Urea Nitrogen 21 mg/dL (8-24); CO2, Blood 30 mmol/L (21-32); Calcium, Blood 9.3 mg/dL (8.5-10.1); Chloride, Blood 106 mmol/L (98-108); Creatinine, Blood 0.96 mg/dL (0.60-1.20); Glomerular Filtration Rate >60 (60-); Glucose, Blood 91 mg/dL (70-99); Potassium, Blood 4.7 mmol/L (3.5-5.5); Sodium, Blood 140 mmol/L (136-145)
--- NOTE | 2021-04-29 17:44 | NUR ---
PT DENIES CP AND SOB T/O THE SHIFT. THIS AFTERNOON PT HAD RATE CHANGE TO ST WITH HR IN 150s, DR JP RODRIGUEZ CARDIZEM DRIP THAT WAS TITRATED TO 15MG/HR HR SLOWLY DECREASED TO 90s REMAINED IN AFIB, CARDIZEM WAS TITRATED TO 5MG/HR WHICH HR CLOWLY RETURNED TO 140s, CARDIZEM TITRATED TO 10MG/HR AT THE TIME OF THIS NOTE. PT OTHERWISE STS HE IS ASYMPTOMATIC FROM HR, STS THAT HE CAN FEEL THAT FLUTTER IN HIS CHEST, DENIES CP OR SOB. NO ACUTE DISTRESS NOTED. FINE WHEEZES NOTED TO LUNGS T/O THIS EVENING, PT RECIEVED LASIX BID TODAY WITH GOOD URINE OUTPUT AND DECREASE IN LOWER LEG EDEMA.
--- NOTE | 2021-04-29 21:43 | NUR ---
PATIENT WAS GIVEN PO METOPROLOL AT 1942, CARDIZEM TURNED OFF AT [address] TRAMMELL'S ORDERS.
--- NOTE | 2021-04-29 22:20 | NUR ---
ASSUMED CARE OF PATIENT AT 1900. A/OX4. REPORTS BACK PAIN RELIEVED WITH PRNS. GENERALIZED WEAKNESS AND ACTIVITY INTOLERANCE D/T SOB. MAINTAINS ABOVE 92% ON 2L NC. LS CLEAR ON TOP AND DIM AT BASES. PATIENT CONVERTED TO SR AGAIN TODAY AROUND 1800. CURRENTLY SR ON TELE IN THE 'S. VSS. 1+ PITTING EDEMA BLE, IMPROVEMENT SINCE LAST NIGHT. WILL UPDATE CHANGES OCCUR.
--- NOTE | 2021-04-30 00:10 | NUR ---
WHEN PULLING FLUIDS/FOOD FROM PT FOR NPO STATUS EXPLAINING WHY TO THE PT, HE REPORTS THAT "I WONT LET THEM DO THE SHOCK THING, BECAUSE I KNOW I WILL CONVERT ON MY OWN". PT HAS MOUTH SWABS UNTIL NPO STATUS IS CLEARED.
[2021-04-30 03:50] LABS: Base Excess Venous 8.8 mmol/L; Bicarbonate Venous 31.7 mmol/L (24.0-30.0); PCO2 Venous 43.4 mmHg (38-42); PO2 Venous 73.7 mmHg (38-42); pH Blood Venous 7.48 (7.34-7.37)
[2021-04-30 04:22] LABS: BASOPHILS ABSOLUTE AUTO 0.06 K/mm3 (0.00-0.23); BASOPHILS PERCENT AUTO 0 % (0-2); EOSINOPHILS PERCENT AUTO 0 % (0-6); Hematocrit 38.8 % (37.0-53.0); Hemoglobin 11.8 g/dL (13.5-17.5); IMMATURE GRAN ABSOLUTE AUTO 0.17 K/mm3 (0.00-0.10); IMMATURE GRAN PERCENT AUTO 1 % (0-1); LYMPHOCYTES ABSOLUTE AUTO 3.12 K/mm3 (0.84-5.20); LYMPHOCYTES PERCENT AUTO 20 % (21-46); MONOCYTES ABSOLUTE AUTO 0.99 K/mm3 (0.16-1.47); MONOCYTES PERCENT AUTO 6 % (4-13); Mean Corpuscular HGB 30.7 pg (26.0-34.0); Mean Corpuscular HGB Conc 30.4 g/dL (31.5-36.5); Mean Platelet Volume 9.5 fL (9.1-12.4); NEUTROPHILS ABSOLUTE AUTO 11.24 K/mm3 (1.96-9.15); NEUTROPHILS PERCENT AUTO 72 % (41-73); Platelet Count 322 K/mm3 (150-400); RDW Coefficient Variation 14.1 % (11.7-14.2); RDW Standard Deviation 52.2 fL (35.1-46.3); Red Blood Cell Count 3.84 M/mm3 (4.30-5.90); White Blood Cell Count 15.58 K/mm3 (4.00-11.30)
[2021-04-30 04:53] LABS: Anion Gap 7 mmol/L (6-16); Blood Urea Nitrogen 20 mg/dL (8-24); Bun/Creatinine Ratio 20.7 (12.0-20.0); CO2, Blood 29 mmol/L (21-32); Calcium, Blood 8.7 mg/dL (8.5-10.1); Chloride, Blood 102 mmol/L (98-108); Creatinine, Blood 0.96 mg/dL (0.60-1.20); Glomerular Filtration Rate >60 (60-); Glucose, Blood 89 mg/dL (70-99); Potassium, Blood 4.4 mmol/L (3.5-5.5); Sodium, Blood 138 mmol/L (136-145)
[2021-04-30 04:57] LABS: Mean Corpuscular Volume 101 fL (80-100)
[2021-04-30] MEDS ORDERED: DRON400T (09:21)
[2021-04-30] MEDS ORDERED: AIRDUO RESPICL1 EAC4 INH (09:22)
[2021-04-30] MEDS ORDERED: Nicoderm Cq1 EAC1 TOP (09:22)
[2021-04-30] MEDS ORDERED: PRED20 PO (09:26)
[2021-04-30] MEDS ORDERED: XARELTO20 MG PO (09:27)
[2021-04-30] MEDS ORDERED: TIOT18 INH (09:28)
--- NOTE | 2021-04-30 09:31 | NUR ---
PATIENT ALERT AND ORIENTED X4. NEURO WNL. ABLE TO STAND TO USE BATHROOM, OVERALL WEAK. ON 2L NASAL CANNULA LUNGS SOUNDING CLEAR AND DIM IN BASES. PATIENT WEARS 2L AT BASELINE DURING THE NIGHT. TELE SHOWING SINUS RHYTHM WITH HR 70-80'S. DENIES CHEST PAIN/PRESSURE. VITAL SIGNS STABLE. VERY MINIMAL EDEMA IN BLE. USING URINAL AT BEDSIDE. DENIES ABDOMINAL PAIN/NAUSEA. CALL LIGHT IN REACH. DR. MUSA BY THIS AM. PLAN FOR DISCHARGE.
--- NOTE | 2021-04-30 10:16 | NUR ---
DISCHARGE: NO ACUTE CHANGES. REVIEWED DISCHARGE INSTRUCTIONS, FOLLOW UP APPOINTMENTS AND MEDICATIONS WITH PATIENT. PATIENT ABLE TO VERBALIZE TEACHING BACK. ALL QUESTIONS ANSWERED. PATIENT GOING HOME VIA TAXI. LEFT UNIT WITH ALL PERSONAL BELONGINGS AND DISCHARGE PAPERWORK. IV TAKEN OUT WNL.
== END 2021-04-30 10:16 | disposition home or self-care (01) | DRG 308 ==
LOC: ER 13:50 → PCU 16:36
PROVIDERS: Internal Medicine; Internal Medicine Cardiovascular Disease; Physician Assistant; Student in an Organized Health Care Education/Training Program; ADMIT Internal Medicine
DX: I48.91 Unspecified atrial fibrillation (principal); I50.33 Acute on chronic diastolic (congestive) heart failure; J96.22 Acute and chronic respiratory failure with hypercapnia; J96.21 Acute and chronic respiratory failure with hypoxia; J44.1 Chronic obstructive pulmonary disease with (acute) exacerbation; E44.0 Moderate protein-calorie malnutrition; I48.92 Unspecified atrial flutter; Z20.822 Contact with and (suspected) exposure to COVID-19; I11.0 Hypertensive heart disease with heart failure; F32.A Depression, unspecified; R91.8 Other nonspecific abnormal finding of lung field; I27.20 Pulmonary hypertension, unspecified; F17.210 Nicotine dependence, cigarettes, uncomplicated; G89.21 Chronic pain due to trauma; M54.9 Dorsalgia, unspecified; M54.2 Cervicalgia; Z91.51 Personal history of suicidal behavior; Z68.25 Body mass index [BMI] 25.0-25.9, adult; Z79.899 Other long term (current) drug therapy; Z79.891 Long term (current) use of opiate analgesic; Z87.820 Personal history of traumatic brain injury
CPT/HCPCS: 0241U; 36415; 70450; 71046; 80048; 80053; 82803; 83735; 83880; 84145; 84443; 84484; 85025; 85027; 85520; 85610; 93005; 93010; 94640; 94760; 96365; 96366; 96368; 96375; 96376; 99285-25; A9270; J1644; J1940; J3010; J7512

== ENCOUNTER 2021-08-24 11:43 | Inpatient (IN) | payer OTHER ==
[~2021-08-24] VITALS: Ht 177.8 cm; Wt 85.5 kg
[~2021-08-24 11:43] MED LIST changes: +AIRDUO RESPICL1 EAC4 INH; +DILTIAZEM 24HR180 M3 PO; +DILTIAZEM 24HR240 M3 PO; +DRON400T; +FURO20 PO; +METO100ER PO; +Nicoderm Cq1 EAC1 TOP; +TIOT18 INH
[2021-08-24 12:20] LABS: BASOPHILS ABSOLUTE AUTO 0.04 K/mm3 (0.00-0.23); BASOPHILS PERCENT AUTO 0 % (0-2); EOSINOPHILS ABSOLUTE AUTO 0.04 K/mm3 (0.00-0.68); EOSINOPHILS PERCENT AUTO 0 % (0-6); Hematocrit 25.4 % (37.0-53.0); Hemoglobin 7.7 g/dL (13.5-17.5); IMMATURE GRAN ABSOLUTE AUTO 0.05 K/mm3 (0.00-0.10); IMMATURE GRAN PERCENT AUTO 1 % (0-1); LYMPHOCYTES ABSOLUTE AUTO 1.47 K/mm3 (0.84-5.20); LYMPHOCYTES PERCENT AUTO 15 % (21-46); MONOCYTES ABSOLUTE AUTO 1.03 K/mm3 (0.16-1.47); MONOCYTES PERCENT AUTO 11 % (4-13); Mean Corpuscular HGB 23.2 pg (26.0-34.0); Mean Corpuscular HGB Conc 30.3 g/dL (31.5-36.5); Mean Corpuscular Volume 77 fL (80-100); Mean Platelet Volume 8.2 fL (9.1-12.4); NEUTROPHILS ABSOLUTE AUTO 7.15 K/mm3 (1.96-9.15); NEUTROPHILS PERCENT AUTO 73 % (41-73); Platelet Count 593 K/mm3 (150-400); RDW Coefficient Variation 16.7 % (11.7-14.2); RDW Standard Deviation 46.5 fL (35.1-46.3); Red Blood Cell Count 3.32 M/mm3 (4.30-5.90); White Blood Cell Count 9.78 K/mm3 (4.00-11.30)
[2021-08-24 12:39] LABS: Alanine Aminotransfer (ALT/SGP 23 U/L (12-78); Albumin, Blood 2.5 g/dL (3.4-5.0); Albumin/Globulin Ratio 0.6 (0.8-1.8); Alk Phos 73 U/L (50-136); Anion Gap 7 mmol/L (6-16); Aspartate Aminotrans (AST/SGOT 32 U/L (12-37); Bilirubin, Total 0.4 mg/dL (0.1-1.0); Blood Urea Nitrogen 9 mg/dL (8-24); Bun/Creatinine Ratio 11.3 (12.0-20.0); CO2, Blood 32 mmol/L (21-32); Calcium, Blood 8.6 mg/dL (8.5-10.1); Chloride, Blood 100 mmol/L (98-108); Globulin, Blood 3.9 g/dL (2.2-4.0); Glomerular Filtration Rate >60 (60-); Glucose, Blood 92 mg/dL (70-99); Potassium, Blood 3.4 mmol/L (3.5-5.5); Sodium, Blood 139 mmol/L (136-145); Total Protein, Blood 6.4 g/dL (6.4-8.2)
[2021-08-24 15:27] LABS: Percent Saturation 3.8 % (20.0-50.0)
[2021-08-24] MEDS ORDERED: FUROSEMIDE40 MG PO (15:52)
[2021-08-24] MEDS ORDERED: METOPROLOL SUCC25 MG PO (15:53)
[2021-08-24] MEDS ORDERED: OXYCODONE-ACET1 EAC2 PO (15:54)
[2021-08-24 17:19] LABS: Hematocrit 26.6 % (37.0-53.0); Hemoglobin 7.9 g/dL (13.5-17.5)
--- NOTE | 2021-08-24 18:24 | NUR ---
SHIFT SUMMARY: PT IS NEW ADMISSION, ARRIVING FROM ER APPROX 1530 TO PCU. PT A&Ox4, MAINTAINS O2 SATS >93% ON 2 L VIA NC, BIPAP ON STANDBY AT BEDSIDE, SR ON MONITOR W/HX AFIB. BLE EDEMA NOTED, DIURESIS STARTED IN ER. RECTAL EXAM PERFORMED IN ER FOR LOW HGB. AT THIS TIME, PT REPORTS IMPROVEMENT TO SOB AND CHEST TIGHTNESS, DYSPNEA W/EXERTION CONTINUES. PT REPORTS CHRONIC LOW BACK PAIN, PRN MEDICATIONS IN EMAR. PT CURRENTLY RESTING QUIETLY IN ROOM W/CALL LIGHT IN REACH. WILL CONTINUE TO MONITOR AND TREAT ACCORDINGLY UNTIL CHANGE OF SHIFT.
[2021-08-25 00:45] LABS: Hematocrit 22.7 % (37.0-53.0); Hemoglobin 6.8 g/dL (13.5-17.5)
[2021-08-25 01:02] LABS: Anion Gap 7 mmol/L (6-16); Blood Urea Nitrogen 15 mg/dL (8-24); Bun/Creatinine Ratio 16.5 (12.0-20.0); CO2, Blood 32 mmol/L (21-32); Calcium, Blood 8.4 mg/dL (8.5-10.1); Chloride, Blood 101 mmol/L (98-108); Creatinine, Blood 0.91 mg/dL (0.60-1.20); Glomerular Filtration Rate >60 (60-); Glucose, Blood 194 mg/dL (70-99); Potassium, Blood 3.6 mmol/L (3.5-5.5); Sodium, Blood 140 mmol/L (136-145)
--- NOTE | 2021-08-25 06:12 | NUR ---
SHIFT SUMMARY PT ALERT AND ORIENTED X4. BP STABLE. NSR 80-90'S. AFEBRILE. ON 3L NC SATS OVER 94%. C/O PAIN THROUGHOUT THE NIGHT, 10/10. PRIMARILY IN LOW BACK, SOME IN ABDOMEN AND CHEST PAIN. RADIATES FROM LOW BACK TO LEG. HOME MEDS ON BOARD, FENTANYL PATCH AND Q4 JOMAR PROVIDING SOME RELIEF. ANEMIC IN MORNING LAB DRAW. HGB OF 6.8. HOSPITALIST AWARE, 1 UNIT OF RED BLOOD INFUSING IN L A/C. IN BED WATCHING TV WITH CALL ALARM AT SIDE. WILL CONTINUE TO MONITOR UNTIL REPORT GIVEN TO DAYSHIFT RN
[2021-08-25 09:11] LABS: Hematocrit 26.3 % (37.0-53.0); Hemoglobin 8.1 g/dL (13.5-17.5)
--- NOTE | 2021-08-25 18:27 | NUR ---
NO ACUTE EVENTS T/O SHIFT. 1 UNIT PRBCS COMPLETED THIS AM W/O ANY COMPLICATIONS NOTED BY THIS RN. H/H HAS COME UP, SEE LAB RESULTS. PT HAD A BM, IT WAS BROWN AND LOOSE, NO S/SX OF BLEEDING NOTED. DR HIDALGO IN TO SEE PT, DOES NOT FEEL THAT PT REQUIRES GI SCOPE URGENTLY, PT OPTS TO HAVE OUT PT FOLLOW UP AFTER DISCHARGE. PT MEDICATED FOR PAIN T/O SHIFT PER EMAR. VSS. PT USES CALL LIGHT APPROPRIATELY. FEET ELEVATED ON PILLOWS WITH VISABLE DECREASE IN BLE EDEMA. WILL CONTINUE TO MONITOR AND GIVE REPORT TO ONCOMING SHIFT RN.
[2021-08-25 21:10] LABS: Hematocrit 26.4 % (37.0-53.0); Hemoglobin 8.1 g/dL (13.5-17.5)
[2021-08-26 04:04] LABS: BASOPHILS ABSOLUTE AUTO 0.05 K/mm3 (0.00-0.23); BASOPHILS PERCENT AUTO 0 % (0-2); EOSINOPHILS PERCENT AUTO 0 % (0-6); Hematocrit 25.5 % (37.0-53.0); Hemoglobin 7.9 g/dL (13.5-17.5); IMMATURE GRAN ABSOLUTE AUTO 0.41 K/mm3 (0.00-0.10); IMMATURE GRAN PERCENT AUTO 1 % (0-1); LYMPHOCYTES ABSOLUTE AUTO 0.87 K/mm3 (0.84-5.20); LYMPHOCYTES PERCENT AUTO 3 % (21-46); MONOCYTES ABSOLUTE AUTO 0.68 K/mm3 (0.16-1.47); MONOCYTES PERCENT AUTO 2 % (4-13); Mean Corpuscular HGB 24.5 pg (26.0-34.0); Mean Corpuscular Volume 79 fL (80-100); Mean Platelet Volume 8.8 fL (9.1-12.4); NEUTROPHILS ABSOLUTE AUTO 27.18 K/mm3 (1.96-9.15); NEUTROPHILS PERCENT AUTO 93 % (41-73); NRBC ABSOLUTE 0.05 K/mm3 (0.00-0.02); NRBC Auto 0.2 /100 WBC (0.0-0.2); Platelet Count 508 K/mm3 (150-400); RDW Coefficient Variation 16.7 % (11.7-14.2); RDW Standard Deviation 47.9 fL (35.1-46.3); Red Blood Cell Count 3.23 M/mm3 (4.30-5.90); White Blood Cell Count 29.19 K/mm3 (4.00-11.30)
--- NOTE | 2021-08-26 07:23 | NUR ---
NO ACUTE EVENTS OVERNIGHT. PT CONTINUES TO COMPLAIN OF 10/10 PAIN WITH ACUTE ON CHRONIC PAIN TO HIS BACK AND NECK. ALSO REPORTS PLEURITIC CHEST PAIN, SIMILAR TO THAT WHEN HE HAD PNEUMONIA PREVIOUSLY. ROXICODONE ADMINISTERED ORDERED. FREQUENT, LOOSE, PRODUCTIVE PEREZ, THICK SPUTUM. FLUTTER VALVE PROVIDED BY RT AND NEBULIZER TREATMENTS ADMINISTERED ORDERED.
[2021-08-26 15:29] LABS: Influenza A, PCR NEGATIVE (NEGATIVE); Influenza B, PCR NEGATIVE (NEGATIVE); Resp Syncytial Virus, PCR NEGATIVE (NEGATIVE); SARS-Cov-2 (COVID-19) PCR, MMC NEGATIVE (NEGATIVE)
--- NOTE | 2021-08-26 15:46 | NUR ---
Supportive visit this afternoon. Pt is known to this medical underwriter from previous hospital stay. Pt reports moderate dyspnea and is currently on 3 1/2 L O2 via NC. Pt reports living with his grandson, granddaughter, and great grandchildren. He reports family is supportive when needed. Offered therapeutic listening as Pt expresses concerns regarding the bill for his hospital stay. He is requesting assistance to apply for the low income program to reduce his bill. Instructed Pt concerns will be relayed to care. Pt confirms his healthcare proxy is his grandson Igor. Discussed considering completing an advanced directive. Pt is agreeable to learn about AD. Educated on each section to complete and the importance of appointing a healthcare dealer compliance representative. Pt reports plan to take home and discuss with family. Pt expresses appreciation and is agreeable for continued visits. Spoke with Dr Ramos and discussed case. Spoke with Candie Ghotra and relayed Pt's request. Plan: Will discuss community Palliative Care ([facility]) with Pt during next visit.
--- NOTE | 2021-08-26 18:34 | NUR ---
PT WITH TWO LOOSE BMs TODAY, NO SIGNS OF BLEEDING NOTED. PT WORKED WITH PT/OT TODAY AND CARE MANAGEMENT IS INVOLVED IN DC PLANNING. PT C/O CHRONIC PAIN, MEDICATED PRN PER EMAR. PT ABLE TO GET UP TO BSC WITH MIN ASSIST, CARABALLO. BLEs ELEVATED WHILE IN BED WITH REDUCTION IN PEDAL EDEMA NOTED. COVID TEST NEG. CXR DONE WITH RESULTS IN CHART. NO ACUTE EVENTS, NO FURTHER NEEDS IDENTIFIED AT THIS TIME, PT IS RESTING IN BED WITH CALL LIGHT IN REACH. WILL CONTINUE TO MONITOR AND GIVE REPORT TO ONCOMING NOC SHIFT RN.
[2021-08-26 21:09] LABS: Hematocrit 25.4 % (37.0-53.0); Hemoglobin 7.9 g/dL (13.5-17.5)
--- NOTE | 2021-08-26 22:28 | NUR ---
CALL TO HOSPITALIST - DR. Senia TUBBS PT COMPLAINING OF 9-10/10 PAIN TO CHEST AND POSTERIOR LEFT LOWER LOBE. PT STATES THAT THIS PAIN IS SIMILAR TO WHEN HE HAD PNEUMONIA IN THE PAST AND IS NOT THE SAME WHEN HE HAS EXPERIENCED ANGINA IN THE PAST. HEART RATE IS INCREASING INTO 110S - 140S AT TIMES. SINUS TACHYCARDIA. CHEST XRAY DONE THIS MORNING SHOWS COPD EXACERBATION, NO PNEUMONIA. NO D-DIMER CHECKED OF YET. ORDERS RECEIVED FOR D-DIMER AND ONE TIME DOSE OF IV MORPHINE. WILL CONTINUE TO MONITOR.
--- NOTE | 2021-08-26 23:45 | NUR ---
CALL TO HOSPITALIST - DR. Senia TUBBS. D-DIMER 0.65. PT REPORTS PAIN TO CHEST AND POSTERIOR LLL AREA IS 8/10 POST MORPHINE ADMINISTRATION. CREATININE 0.91. ORDER RECEIVED FOR CT-ANGIO OF CHEST TO RULE OUT PULMONDARY EMBOLISM.
[2021-08-27 04:30] LABS: BASOPHILS ABSOLUTE AUTO 0.03 K/mm3 (0.00-0.23); BASOPHILS PERCENT AUTO 0 % (0-2); EOSINOPHILS PERCENT AUTO 0 % (0-6); Hematocrit 25.1 % (37.0-53.0); Hemoglobin 7.8 g/dL (13.5-17.5); IMMATURE GRAN ABSOLUTE AUTO 0.82 K/mm3 (0.00-0.10); IMMATURE GRAN PERCENT AUTO 3 % (0-1); LYMPHOCYTES ABSOLUTE AUTO 0.97 K/mm3 (0.84-5.20); LYMPHOCYTES PERCENT AUTO 4 % (21-46); MONOCYTES ABSOLUTE AUTO 0.57 K/mm3 (0.16-1.47); MONOCYTES PERCENT AUTO 2 % (4-13); Mean Corpuscular HGB 24.5 pg (26.0-34.0); Mean Corpuscular HGB Conc 31.1 g/dL (31.5-36.5); Mean Corpuscular Volume 79 fL (80-100); Mean Platelet Volume 8.7 fL (9.1-12.4); NEUTROPHILS ABSOLUTE AUTO 24.95 K/mm3 (1.96-9.15); NEUTROPHILS PERCENT AUTO 91 % (41-73); NRBC ABSOLUTE 0.12 K/mm3 (0.00-0.02); NRBC Auto 0.4 /100 WBC (0.0-0.2); Platelet Count 521 K/mm3 (150-400); RDW Coefficient Variation 17.4 % (11.7-14.2); RDW Standard Deviation 49.7 fL (35.1-46.3); Red Blood Cell Count 3.19 M/mm3 (4.30-5.90); White Blood Cell Count 27.34 K/mm3 (4.00-11.30)
--- NOTE | 2021-08-27 06:56 | NUR ---
SEE PREVIOUS NURSE NOTES DURING THIS SHIFT. CTA OF CHEST COMPLETED ORDERED. NEGATIVE FOR PULMONARY EMBOLISM. SEE CHART FOR COMPLETE REPORT. PT CONTINUES TO COMPLAIN OF PLEURITIC CHEST PAIN 01/24. THE ONLY RELIEF HE REPORTS FROM THAT PAIN WAS THE ONE TIME DOSE OF 2 MG MORPHINE THAT HE RECEIVED LAST NIGHT. HE WAS ABLE TO GET MORE REST THAN PREVIOUS NIGHTS, AND ATTRIBUTES THAT TO THE MORPHINE. PT IS REQUESTING ADDITIONAL INTERVENTION FOR RELIEF OF THIS PLEURITIC CHEST PAIN.
--- NOTE | 2021-08-27 11:29 | NUR ---
Supportive F/U visit today. Pt reports potential plan to D/C home today. Engaged in therapeutic discussion regarding considering [facility]. Pt denies need at this time. Pt focuses his concerns regarding having O2 set up for his transport home. Pt reports his granddaughter in law Suzie is a LEATHER LEVELER and can manage keeping him out of the hospital. Discussed PT and OT recommendations for home health with Pt denying need. Pt reports no other concerns at this time. Spoke with Caremanager Paradise and discussed case. Palliative Care will remain available.
--- NOTE | 2021-08-27 16:18 | NUR ---
SHIFT SUMMARY Pt is a/o x 4. He contiues to have chronic pain and has been mediccated as needed per emar. He is on his baseline 2 lpm via NC and has maintained his sats in the high 90's all day. He did get SOB when he got up for a shower this afternoon but he quickly recovered after going back to bed to rest. Rt has been seeing him throughout the day for his breathing treatments and they also completed his home O2 eval. The plan was for him to go home today but the doctor decided to keep him another night. Plans were set with [facility] for his transport oxygen but put on hold until we know his dc date. His grandson may be able to pick him up depending on the day/time otherwise he will need a taxi and the care director rn was made aware of this today. He has been is NSR today. He has some tightness in his chest related to his SOB and it is alleviated with his PRN pain meds. He continues to use the urinal at the bedside. He has all of his personal items in reach along with his call light. He does call appropriately when needed.
[2021-08-28 04:37] LABS: BASOPHILS ABSOLUTE AUTO 0.02 K/mm3 (0.00-0.23); BASOPHILS PERCENT AUTO 0 % (0-2); EOSINOPHILS PERCENT AUTO 0 % (0-6); Hematocrit 26.1 % (37.0-53.0); Hemoglobin 7.9 g/dL (13.5-17.5); IMMATURE GRAN PERCENT AUTO 3 % (0-1); LYMPHOCYTES ABSOLUTE AUTO 1.33 K/mm3 (0.84-5.20); LYMPHOCYTES PERCENT AUTO 6 % (21-46); MONOCYTES ABSOLUTE AUTO 1.32 K/mm3 (0.16-1.47); MONOCYTES PERCENT AUTO 6 % (4-13); Mean Corpuscular HGB 24.3 pg (26.0-34.0); Mean Corpuscular HGB Conc 30.3 g/dL (31.5-36.5); Mean Corpuscular Volume 80 fL (80-100); NEUTROPHILS ABSOLUTE AUTO 20.53 K/mm3 (1.96-9.15); NEUTROPHILS PERCENT AUTO 86 % (41-73); NRBC ABSOLUTE 0.19 K/mm3 (0.00-0.02); NRBC Auto 0.8 /100 WBC (0.0-0.2); Platelet Count 512 K/mm3 (150-400); RDW Coefficient Variation 18.7 % (11.7-14.2); RDW Standard Deviation 51.6 fL (35.1-46.3); Red Blood Cell Count 3.25 M/mm3 (4.30-5.90)
--- NOTE | 2021-08-28 05:40 | NUR ---
End of shift summary Overnoc went well besides his pain 10/10 generalized Q4 oxycodone around the clock, VSS 3L titrated down to 2L NC, tried room air but sats 86-88%. He is also having mild nausea, treated with antiemetic, will continue to monitor Leonidas Mendez RN
--- NOTE | 2021-08-28 11:48 | NUR ---
Received a call from Cameron, bedside RN. This patient is known to Palliative Care and the bedside RN from multiple hospitalizations related to COPD. He tells me at this visit, he can no longer handle the pain, or the SOB. He is alert and oriented. He tells me he lives with his grandson and his , and they are a great support system for him. He states he hasn't yet told them of his decision to begin comfort care. We discussed in depth what Comfort Care means, and he verbalizes understanding. He states his in the hospital with comfort care in place. He does understand this means he will no longer be pursuing any life sustaining treatments, and will be focusing on comfort as the goal. Pt states he doesn't want to return home on hospice, as he has a young great- grandson living there, and "doesn't want him to see that". He has not yet told them of his plan for comfort care, but will be telling them today. Once he has had the discussion with them and they're aware, I will discuss hospice and other options with them and the patient. Received verbal orders for Comfort Care from Dr. Ramos. Placing orders now. Will continue to monitor and work with this patient. his grandson and
--- NOTE | 2021-08-28 16:23 | NUR ---
SHIFT SUMMARY Pt is a/o x 4. He has ongoing c/o chronic pain. This morning he said during rounds with the doctor he said he would like to be on comfort care and have his pain better managed. Palliative care came to speak with him and he was transitioned to comfort care and his code status changed to DNR. He reports that his pain is better managed now but the relief is short lived. He calls when he needs something PRN for his pain. His nausea has been better this afternoon and he was able to have a BM on the BSC. He continues to use the urinal. He has a good appetite. He has been updating his family via telephone. He has his personal items and call light in reach and calls appropriately when needed.
--- NOTE | 2021-08-29 06:10 | NUR ---
End of shift summary Overnight went well, VSS, pain much better controlled, nausea still present but covered with IV antiemetic, 2-3L NC (Baseline), will continue to monitor JENN Lauren
--- NOTE | 2021-08-29 08:35 | NUR ---
PATIENT IS RESTING COMFORTABLY THIS AM, SLEEPING ON/OFF. DOES C/O OF PAIN IN HIS CHEST ANTERIOR AND POSTERIOR, LEFT LEG, BACK, NECK 01/24, MEDICATING PER EMAR. ATE 100% OF HIS BREAKFAST TODAY. URINATING AT BEDSIDE. SPO2>95% ON 6L O2 NC.
--- NOTE | 2021-08-29 09:55 | NUR ---
The patient lives his grandson Igor and Igor's Darlyn. Darlyn is the primary personal computer network analyst for the patient. I spoke to Darlyn yesterday after the pt told her he was now on comfort care. She understands the pt will be admitted to hospice at her home, and is agreeable to this. The patient and Darlyn chose [facility]. Order for hospice was placed, and packet sent to [place]. I spoke to Cutting Room Supervisor, and she states they might be able to admit tomorrow, or for sure on Monday. She will call me when she knows for sure.
--- NOTE | 2021-08-29 13:43 | NUR ---
Pt reporting pain 8/10 back. neck, chest, lle, pt drowsy but able to hold conversation. Medicated per orders. Pt pulled o2 off, when encouraged to replace o2 to nose pt refused, stating he does not want it on at this time. Will continue to monitor.
--- NOTE | 2021-08-29 14:24 | NUR ---
PATIENT IS SLEEPING OFF/ON, RESTING IN HIS BED. AMBULATES TO SIT UP IN A CHAIR AND BACK TO BED NEEDED. ORAL CARE SET UP.
--- NOTE | 2021-08-29 15:52 | NUR ---
UPDATE: Pt will not be admitting to hospice at this time. He will instead be followed by [facility]. At the time of the referral, I had mentioned to Darlyn I wasn't sure if pt would quite be ready for hospice yet, and this is specifically the reason for [facility]. They are able to place pt on Palliative now, and transition to hospice when needed. Pt, family aware.
--- NOTE | 2021-08-29 17:58 | NUR ---
SHIFT SUMMARY PATIENT REMAINED A&OX4 T/O SHIFT. BP SOFT, TELE NSR 80-90S, SPO2>90% WITH SUPPLEMENTAL 2L O2 VIA NC PRN. VSS STABLE OTHERWISE. MEDICATING PATIENT PER UPDATED EMAR HE CONTINUES TO REPORT PAIN ALL OVER HIS BODY (BACK, CHEST, LEFT LEG, ABDOMEN, ETC0. MDS AT BEDSIDE TODAY - SEE NURSE NOTES. PATIENT AMBULATING TO THE CHAIR AND BACK TOLERATED. WILL CONITNUE TO MONITOR UNTIL REPORT GIVEN TO THE ONCOMING NURSE.
--- NOTE | 2021-08-29 18:10 | NUR ---
I have reviewed the nursing students documentation and am in agreement. This am pt on comfort care, received update from joelle Gibbons rn, pt does not qualify for home on hospice, called Dr Ramos to clarify comfort care orders; new orders to d/c comfort care. Pt stating to staff that he just wants to here, notified Dr. Dr Ramos to bedside to discuss plan of care, pain management and mood. SI assessment completed, pt denies wanting to commit suicide, denies intent and plans but states he just want to go to sleep and not wake up; new orders for low si, notified discharge planner. Pt continues to report pain, medciated per emar, new orders per Dr Ramos to continue roxanol order change frquency to q6h. Pt continues to refuse oxygen, o2 >90% on ra, other when sleeping, desaturate to 80's. Dr Carlson at bedside to discuss plan of care, new order for additional one time dose of oxycodone 10 mg po now, administered per orders. Clarified order for medical status with out tele, new orders for tele placed; tele sinus rhythm. Pt desaturating while sleeping, placed 2l o2 via nc. Will continue to monitor.
--- NOTE | 2021-08-29 21:39 | NUR ---
CALLED PLACED TO DANNY MON AT [employer]10 TO INFORM ABOUT BP OF 80/52, BP RETAKEN 5 MINS LATER AND INCREASED TO 92/52. NO CHANGE IN PT LOC, DROWSY BUT ARROUSABLE. AT THAT TIME MD ORDERED 500ML BOLUS OF NS, AND TO REPEAT BP AFTER FLUID BOLUS. IF SYSTOLIC BP WAS BELOW 90, REPEAT OF 500ML NS BOLUS TO BE GIVEN MD ORDERED TO GIVE PT SCHEDULED OXICONTIN AT THAT TIME WELL SCHEDULED REMERON. WILL CONTINUE TO MONITOR.
--- NOTE | 2021-08-30 05:33 | NUR ---
SHIFT SUMMARY A/O X4 THROUGHOUT SHIFT. PT REPORTS PAIN THROUGHOUT HIS BODY, NEW ORDER OF OXYCONTIN 20MG TAB CR WAS GIVEN TONIGHT PER EMAR, PT STATES THAT HE BELIEVES THAT IT HELPED. ALSO TREATED APPROX Q4H W/ ROXICODONE 10MG PER EMAR. PT SLEPT MOST OF THE NIGHT. ONE 500ML NS BOLUS WAS GIVEN TO INCREASE BP PER DR ORDER. VOIDING AND HAVING BOWEL MOVEMENTS, THIS AM BOWEL DID NOT APPEAR TO HAVE RED/PINK APPEARANCE LIKE PREVIOUS BOWEL MOVEMENT. O2 SATURATION ABOVE 90% W/ 1L NC THIS AM. PLEASANT AND COOPERATIVE W/ CARE THIS SHIFT. WILL CONTINUE TO MONITOR AND REPORT TO ONCOMING RN.
--- NOTE | 2021-08-30 09:27 | NUR ---
Am note Pt sitting up in bed; alert, oriented x4; flat and withdrawn. Sba to bsc. Pt reports chronic pain, medicated with scheduled pain management. Pt reports "a little" sob, sob with exertion, spo2 >90% on 1-2l o2 via nc, breathing even and unlabored, ls clear in rul, exp wheezes t/o with dim bases and mushtaq. Tele sinus, bp stable this am. Pt bt hypoactive, firm, tender. Pt refusing iron supp and mucinex this am, educated pt on uses, pt continues to refuse. Other vss. No s/sx of distress noted. Will continue to monitor.
--- NOTE | 2021-08-30 17:52 | NUR ---
Shift Summary Pt continues to report chronic pain t/o; medicated per emar, disucssed pain management with Dr Carlson per pt request, no new orders at this time. Pt refusing to take remeron tonight, states "It made me feel like I was on fire all night" and pt reports having nightmares, notified Dr Carlson, new orders to discontinue medication. No other acute changes noted. Pt on 1-2l o2 via nc t/o shift. Will continue to monitor until report given to oncoming rn.
--- NOTE | 2021-08-31 05:58 | NUR ---
SHIFT SUMMARY NO ACUTE CHANGES THIS SHIFT. PT S&OX4. SP02 >90% ON 3L NC. PT REFUSED TO WEAR CPAP AT [facility]. TELEMETRY SHOWS NSR. PT C/O OF BACK/NECK PAIN 02/24. MEDICATED PER EMAR MULTIPLE TIMES ALLOWED PER EMAR. PT WOULD CALL FOR PAIN MEDICATION BEFORE IT WAS DUE. PT USED URINAL AT BEDSIDE TO VOID. ONE LOOSE BUT FORMED BM THIS SHIFT ON BSC, COURT SECURITY OFFICER REPORTED PINK TINGE. PT C/O OF FLUID NOT DRIANING FROM LEGS, DESPITE THEM BEING ELEVATED. PT STATES, "I GOT LASIX BUT NOT THE IV ONE. WHY CANT I HAVE THE IV ONE?". PT SLEPT MINIMALLY DURING NIGHT. CALL LIGHT IN REACH.
--- NOTE | 2021-08-31 10:51 | NUR ---
AM NOTE PATIENT IS A&OX4. TELE SINUS TACHY, SPO2>95% ON 1-3L O2 NC. BP SOFT, RATE>150, MD AWARE, MEDICATING PER EMAR ORDERS. EKG COMPLETED PER MD ORDERS. PATIENT IS STILL C/O OF PAIN T/O HIS BODY, MEDICATING PER EMAR. PATIENT IS ANXIOUS TO GET DISCHARGED HOME.
[2021-08-31 15:10] LABS: BASOPHILS ABSOLUTE AUTO 0.02 K/mm3 (0.00-0.23); BASOPHILS PERCENT AUTO 0 % (0-2); EOSINOPHILS ABSOLUTE AUTO 0.02 K/mm3 (0.00-0.68); EOSINOPHILS PERCENT AUTO 0 % (0-6); Hematocrit 29.6 % (37.0-53.0); Hemoglobin 8.7 g/dL (13.5-17.5); IMMATURE GRAN ABSOLUTE AUTO 0.33 K/mm3 (0.00-0.10); IMMATURE GRAN PERCENT AUTO 2 % (0-1); LYMPHOCYTES ABSOLUTE AUTO 0.93 K/mm3 (0.84-5.20); LYMPHOCYTES PERCENT AUTO 7 % (21-46); MONOCYTES ABSOLUTE AUTO 0.67 K/mm3 (0.16-1.47); MONOCYTES PERCENT AUTO 5 % (4-13); Mean Corpuscular HGB 24.7 pg (26.0-34.0); Mean Corpuscular HGB Conc 29.4 g/dL (31.5-36.5); Mean Corpuscular Volume 84 fL (80-100); Mean Platelet Volume 9.1 fL (9.1-12.4); NEUTROPHILS ABSOLUTE AUTO 11.63 K/mm3 (1.96-9.15); NEUTROPHILS PERCENT AUTO 86 % (41-73); Platelet Count 505 K/mm3 (150-400); RDW Coefficient Variation 21.6 % (11.7-14.2); RDW Standard Deviation 64.9 fL (35.1-46.3); Red Blood Cell Count 3.52 M/mm3 (4.30-5.90)
[2021-08-31 15:26] LABS: Bun/Creatinine Ratio 24.6 (12.0-20.0); Calcium, Blood 7.7 mg/dL (8.5-10.1); Creatinine, Blood 0.86 mg/dL (0.60-1.20); Potassium, Blood 4.5 mmol/L (3.5-5.5)
--- NOTE | 2021-08-31 17:28 | NUR ---
Pt states today his pain is well controlled at this time. He will be discharging and followed by outpatient Palliative program by eli ([facility]).
--- NOTE | 2021-08-31 18:50 | NUR ---
SHIFT SUMMARY PATIENT REMAINED A&OX4. TELE SINUS TACH TO NSR 80S. SPO2>95% ON 1-3L O2 NC. PATIENT DID HAVE EPISODES OF CP AND TACHY>150, MEDICATED PER MD ORDERS. OTHERWISE VSS. 1 ASSIST, STILL UTILIZING URINAL AT BEDSIDE. PATIENT IS STILL EAGER TO GET DISCHARGED. PATIENT IS STILL REPORTING PAIN T/O HIS BODY, MEDICATING PER EMAR. WILL CONTINUE TO MONITOR UNTIL REPORT GIVEN TO THE ONCOMING SHIFT.
--- NOTE | 2021-08-31 19:27 | NUR ---
Shift Summary Pt alert and oriented, pt flat, withdrawn, depression noted. Pt reports chronic generalized pain and chest pain this am, medicated with scheduled and prn medications per orders. Pt reports sob, spo2 >90% on 1l o2 vi nc, ls dim, breathing even and unlabored. Tele this am showing sinus/sinus tach 90-100's heart increased to 150's sustaining, notified Dr Ramos, new orders for EKG, notifeid Dr Ramos of results, new order for iv lopressor; hr remains the same, bp soft; notified , new order for additional dose of lopressor iv, hr remains, bp soft, notified dr; Dr Carlson placed orders for iv cardizem, notified bp soft, held cardizem, new orders for dizoxin, administered per orders, pt bp soft, hr to 70-80', pt reports dizziness with low bp, improved when bp trending up. Educated pt on oral intake and drinking high sodium drinks. Other vss, no other acute changes noted. Report given to oncoming rn. I have reviewed the hospital nursing assistant documentation and am in agreement.
--- NOTE | 2021-08-31 19:40 | NUR ---
ASSUMPTION OF CARE LUIS WILKINS AND MILAGRO BARAJAS ASSUMED CARE OF PATIENT AT 1900. REPORT TAKEN FROM SHANEL BARAJAS. PATIENT REPORTED PAIN 02/24 UPON ARRIVAL. VITALS TAKEN; VSS. MEDICATED PER EMAR FOR PAIN
--- NOTE | 2021-08-31 21:39 | NUR ---
PT UPDATE AIDE & INSTRUMENTATION SPECIALIST REPORTS SEEING SMALL AMOUNT OF AKILAH BLOOD IN PT'S STOOL. AIDE REPORTS SEEING IT MONDAY NIGHT WELL. CALL PLACED TO MD GOODMAN. MD GOODMAN W/ ORDERS TO HOLD XARELTO IN AM AND CBC WITH MORNING LABS.
[2021-08-31 23:38] LABS: Digoxin (Lanoxin) 0.56 ug/mL (0.80-2.00)
[2021-09-01 07:42] LABS: BASOPHILS ABSOLUTE AUTO 0.02 K/mm3 (0.00-0.23); BASOPHILS PERCENT AUTO 0 % (0-2); EOSINOPHILS ABSOLUTE AUTO 0.25 K/mm3 (0.00-0.68); EOSINOPHILS PERCENT AUTO 2 % (0-6); Hematocrit 28.5 % (37.0-53.0); Hemoglobin 8.5 g/dL (13.5-17.5); IMMATURE GRAN ABSOLUTE AUTO 0.35 K/mm3 (0.00-0.10); IMMATURE GRAN PERCENT AUTO 2 % (0-1); LYMPHOCYTES ABSOLUTE AUTO 3.46 K/mm3 (0.84-5.20); LYMPHOCYTES PERCENT AUTO 22 % (21-46); MONOCYTES ABSOLUTE AUTO 1.63 K/mm3 (0.16-1.47); MONOCYTES PERCENT AUTO 10 % (4-13); Mean Corpuscular HGB 24.9 pg (26.0-34.0); Mean Corpuscular HGB Conc 29.8 g/dL (31.5-36.5); Mean Corpuscular Volume 84 fL (80-100); Mean Platelet Volume 9.5 fL (9.1-12.4); NEUTROPHILS ABSOLUTE AUTO 9.97 K/mm3 (1.96-9.15); NEUTROPHILS PERCENT AUTO 64 % (41-73); Platelet Count 565 K/mm3 (150-400); RDW Coefficient Variation 21.9 % (11.7-14.2); RDW Standard Deviation 66.6 fL (35.1-46.3); Red Blood Cell Count 3.41 M/mm3 (4.30-5.90); White Blood Cell Count 15.68 K/mm3 (4.00-11.30)
--- NOTE | 2021-09-01 15:01 | NUR ---
SUMMARY OF CARE/DC NOTE Pt is a/o x 4. He has ongoing chronic pain and has been medicated per emar. He has been waiting for his daughter to arrive from [place] as she will be helping him get settled back in at home. He has a good appetite and continues to use the urinal for toileting. Charge nurse completed the dc packet and reviewed the instructions with him. All of his personal items were packed and the AUTO VINYL TOP INSTALLER assisted him to get dressed. His IV was removed with no issue. army manager set up O2 for transport through [facility] and they delivered the tank. The pt will be on [facility] palliative care transitional program until he qualifies for hospice. The daughter picked him up out front and the AUTO VINYL TOP INSTALLER helped him out to the car. The pt was stable on DC.
== END 2021-09-01 14:48 | disposition home or self-care (01) | DRG 189 ==
LOC: ER 11:43 → PCU 13:54
PROVIDERS: Family Medicine; Internal Medicine; Nurse Practitioner Acute Care; Physician Assistant; Student in an Organized Health Care Education/Training Program; ADMIT Internal Medicine
PROC: 30233N1 Transfusion of Nonautologous Red Blood Cells into Peripheral Vein, Percutaneous Approach (ICD-10-PCS; principal; 2021-08-24)
PROC: 5A09357 Assistance with Respiratory Ventilation, Less than 24 Consecutive Hours, Continuous Positive Airway Pressure (ICD-10-PCS; 2021-08-24)
DX: J96.21 Acute and chronic respiratory failure with hypoxia (principal); J44.1 Chronic obstructive pulmonary disease with (acute) exacerbation; I48.20 Chronic atrial fibrillation, unspecified; I50.32 Chronic diastolic (congestive) heart failure; F11.20 Opioid dependence, uncomplicated; F32.A Depression, unspecified; I11.0 Hypertensive heart disease with heart failure; D50.9 Iron deficiency anemia, unspecified; M54.9 Dorsalgia, unspecified; G89.4 Chronic pain syndrome; Z20.822 Contact with and (suspected) exposure to COVID-19; Z87.891 Personal history of nicotine dependence; Z85.038 Personal history of other malignant neoplasm of large intestine; Z90.49 Acquired absence of other specified parts of digestive tract; Z93.3 Colostomy status; Z98.890 Other specified postprocedural states; Z99.81 Dependence on supplemental oxygen; Z79.01 Long term (current) use of anticoagulants; Z79.51 Long term (current) use of inhaled steroids; Z79.899 Other long term (current) drug therapy; Z88.5 Allergy status to narcotic agent; Z51.5 Encounter for palliative care
CPT/HCPCS: 0241U; 36415; 36430; 71045; 71260; 80048; 80053; 80162; 82272; 82728; 82947; 83540; 83550; 83880; 84484; 85014; 85018; 85025; 85379; 86850; 86900; 86901; 86923; 93005; 93010; 94640; 94644; 94660; 94664; 94760; 94761; 94762; 96374; 96375; 97110; 97116; 97162; 97164; 97166; 97530; 97535; 98960; 99285-25; 99406; A9270; C9113; J0456; J0696; J1160; J1170; J1940; J2270; J2405; J2916; J2930; J7040; J7060; J7512; P9016; Q9967